=== PATIENT | female | born 1985 | race African-American/Black ===

== ENCOUNTER 2025-04-06 09:28 | Emergency (ER) | payer OTHER, SELFPAY ==
[2025-04-06 09:39] VITALS: BP 151/84; PULSE 57; RESP 20; TEMP 37.1; O2SAT 100
--- NOTE | 2025-04-06 09:51 | ED.UPPEXIN ---
HPI - Extremity Injury (Upper) General Chief Complaint: Extremity Injury, Upper Stated Complaint: Right Wrist Pain Time Seen by Provider: 04/06/25 09:45 Source: patient and RN notes reviewed Mode of arrival: ambulatory Limitations: no limitations History of Present Illness HPI narrative: Patient presents today with a right wrist injury. 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 The patient was combative and her wrist was twisted and slightly hyperextended. Denies numbness or tingling in the wrist or hand. She rates her pain 8/10 with movement and describes the pain as throbbing. She has tried no otpt-kfe-brammms interventions prior to arrival. Related Data Home Medications ?Medication ?Instructions ?Recorded ?Confirmed ?Last Taken ?Type ferrous sulfate PO DAILY 04/06/25 Unknown History hydroxyzine HCl 25 mg tablet mg 04/06/25 Unknown History montelukast 10 mg tablet mg 04/06/25 Unknown History Allergies Allergy/AdvReac Type Severity Reaction Status Date / Time No Known Allergies Allergy Verified 04/06/25 09:44 Review of Systems Review of Systems: CONSTITUTIONAL: Denies body aches, fever, chills, or sweats. EYES: Denies visual changes, redness, or discharge. ENT: Denies rhinorrhea, congestion, sore throat, or otalgia. CARDIOVASCULAR: Denies chest pain, palpitations, or edema. RESPIRATORY: Denies cough or dyspnea. GASTROINTESTINAL: Denies abdominal pain, nausea, vomiting, or diarrhea. GENITOURINARY: Denies dysuria or hematuria. SKIN: Denies rash, itching, or wounds. MUSCULOSKELETAL: Denies back pain, or myalgia.+ right wrist pain NEUROLOGIC: Denies headache, numbness, tingling, or weakness. PSYCH: Denies depression or anxiety. PMFSH Comments At time of signature, I have reviewed and agree with nursing past medical, surgical, social and family history unless otherwise noted. Please see nursing chart for further information. There is no relevant family history pertinent to the presenting complaint Exam Narrative: GENERAL: Well-appearing, well-nourished, and in no acute distress. HEAD: Normocephalic, atraumatic. EYES: EOMI. No redness or drainage. Conjunctivae normal. ENT: Mucous membranes pink and moist. NECK: Normal AROM. CHEST: No respiratory distress. EXTREMITIES: Right wrist: No bony tenderness about the wrist or hand, patient does have some soft tissue tenderness about the wrist. No appreciable edema, deformity, ecchymosis, or erythema. No snuffbox tenderness. Decreased P ROM of the wrist in all directions due to pain. Distal sensation intact. Capillary refill normal. Radial pulse normal. SKIN: Warm, dry, no rash. Capillary refill normal. Normal skin turgor. NEURO: No focal deficits. Alert and oriented x3. Gait steady. PSYCH: Normal affect. No signs of depression or anxiety. Course Course Level of Care: Express Care Visit Vital Signs Vital signs: Vital Signs Temperature 98.8 F 04/06/25 09:39 Pulse Rate 57 L 04/06/25 09:39 Respiratory Rate 20 04/06/25 09:39 Blood Pressure 151/84 H 04/06/25 09:39 Pulse Oximetry 100 04/06/25 09:39 Oxygen Delivery Room Air 04/06/25 09:39 Temperature 98.8 F 04/06/25 09:39 Pulse Rate 57 L 04/06/25 09:39 Respiratory Rate 20 04/06/25 09:39 Blood Pressure 151/84 H 04/06/25 09:39 Pulse Oximetry 100 04/06/25 09:39 Oxygen Delivery Room Air 04/06/25 09:39 Reviewed MDM - Extremity Injury (Upper) MDM Narrative Medical decision making narrative: Pleasant 40 year old female patient who was injured at work. Mechanism seems to be a twisting and slightly hyper flexed injury the wrist. She has no bony tenderness or deformity of the wrist, likely a sprain. His wrap applied. Through shared decision-making, agrees X-ray not necessary at this time. Recommend ice, elevation, compression, anti-inflammatories. Recommend orthopedic or PCP follow-up in 7-10 days if symptoms are not improving. Vital signs stable. Differential Diagnosis Differential diagnosis: Likely sprain and strain of wrist, fracture of wrist and other (Contusion) Critical Care Time Critical Care Time Critical Care Time: No Discharge Plan Discharge Clinical Impression: Right wrist sprain Qualifiers: Encounter type: initial encounter Wrist sprain location: unspecified location Qualified Code(s): S63.501A - Unspecified sprain of right wrist, initial encounter Patient Disposition: Home Condition: Stable Instructions: Wrist Sprain (ED) Additional Instructions: Wear the Caleb wrap for comfort and stability. Elevate and ice the wrist. Taking anti-inflammatories such as Aleve or ibuprofen. Follow-up with your PCP or orthopedist in 7-10 days if symptoms are not improving. Please follow-up with your employer regarding workman's compensation. Your blood pressure was elevated above 120/80 today at Urgent Care. This puts you above the threshold for follow up. Please schedule a followup visit with your personal physician as soon as possible, for further evaluation and treatment. Even blood pressure exceeding 120/80 may indicate pre-hypertension. Patient Language: Armenian Prescriptions: No Action montelukast 10 mg tablet hydroxyzine HCl 25 mg tablet ferrous sulfate [Iron (ferrous sulfate)] PO DAILY Follow-up/Referrals: Harjit Singh MD [Physician] - PHYSICIAN,IMPROVEMENT COORDINATOR [Primary Care Provider] - Time of Disposition: 09:56
== END 2025-04-06 10:13 | disposition home or self-care (01) ==
PROVIDERS: Emergency Provider Nurse Practitioner
DX: S63.501A Unspecified sprain of right wrist, initial encounter (principal); X50.9XXA Other and unspecified overexertion or strenuous movements or postures, initial encounter; Y99.0 Civilian activity done for income or pay
CPT/HCPCS: 99202; G0463